=== PATIENT | female | born 2000 | race Caucasian/White ===

== ENCOUNTER 2022-01-05 16:52 | Emergency (ER) | payer MEDICAID ==
[2022-01-05] MEDS ORDERED: Sodium Chloride 0.9% 2.5 ML Syringe FLUSH PRN (17:34)
[2022-01-05] MEDS ORDERED: Sodium Chloride 0.9% 10 ML Syringe FLUSH PRN (17:34)
[2022-01-05 19:02] LABS: CARBON DIOXIDE,CO2 25.8 mmol/L (21.0-32.0); POTASSIUM,K 3.6 mmol/L (3.5-5.1)
[2022-01-05] MEDS ORDERED: Aspirin 81 MG Tab.Chew PO ONE (19:43)
[2022-01-05] MEDS ORDERED: Clopidogrel 75 MG Tab PO ONE (19:44)
[2022-01-05] MEDS ORDERED: Heparin Sodium/0.45% NaCl 500 ML IV STA (19:48)
[2022-01-05] MEDS: Heparin Sodium 5,000 Units/ML Vial IVPUSH ONE ×2 (20:12→22:32)
[2022-01-05] MEDS ORDERED: Iopamidol 755 MG/ML 500 ML Multipack Bottle IVPUSH STA (21:57)
== END 2022-01-05 22:30 ==
LOC: MW.ED 16:52
DX: O99.891 Other specified diseases and conditions complicating pregnancy (principal); R00.2 Palpitations; R79.89 Other specified abnormal findings of blood chemistry; Z3A.00 Weeks of gestation of pregnancy not specified; Z88.0 Allergy status to penicillin; Z20.822 Contact with and (suspected) exposure to COVID-19
CPT/HCPCS: 36415; 71045; 71275; 80053; 80305; 84443; 84484; 84702; 84703; 85025; 85379; 85652; 85730; 86140; 87635; 99285; A9270; J3490; Q9967; J1644; U0002

== ENCOUNTER 2022-08-25 15:44 | Inpatient (IN) | payer MEDICAID ==
[2022-08-25] MEDS ORDERED: Lidocaine 1% 50 ML MDV INJECT PRN (15:48)
[2022-08-25] MEDS ORDERED: Terbutaline 1 MG/ML SDV SUBCUT PRN (15:48)
[2022-08-25] MEDS ORDERED: Water For Irrigation,Sterile 1,000 ML Container IRR PRN (15:48)
[2022-08-25] MEDS ORDERED: Methylergonovine 0.2 MG/1 ML Amp IM PRN (15:48)
[2022-08-25] MEDS ORDERED: Sodium Chloride 0.9% 2.5 ML Syringe FLUSH PRN (15:48)
[2022-08-25] MEDS ORDERED: Sodium Chloride 0.9% 10 ML Syringe FLUSH PRN (15:48)
[2022-08-25] MEDS ORDERED: Sodium Chloride 0.9% 20 ML SDV IV PRN (15:48)
[2022-08-25] MEDS ORDERED: Tranexamic Acid 1,000 MG in Sodium Chloride 0.9% 100 ML IV PRN (15:48)
[2022-08-25] MEDS ORDERED: Misoprostol 200 MCG Tab PO PRN (15:48)
[2022-08-25] MEDS ORDERED: Carboprost Tromethamine 250 MCG/1 mL Vial IM PRN (15:48)
[2022-08-25] MEDS ORDERED: Nalbuphine HCl 10 MG/ 1ML Amp IVPUSH PRN (15:48)
[2022-08-25] MEDS ORDERED: Oxytocin/0.9 % Sodium Chloride 30 UNIT/500 ML BAG IV SCH ×2 (16:00)
[2022-08-25 16:21] LABS: HEMATOCRIT 32.3 % (36.0-46.0); HEMOGLOBIN 10.7 g/dL (12.0-16.0); MEAN CORPUSCULAR HGB CONC 33.1 g/dL (31.0-37.0); MEAN CORPUSCULAR VOLUME 90.5 fL (80.0-98.0); MEAN PLATELET VOLUME 10.4 fL (7.40-12.00); RED BLOOD CELL COUNT 3.57 M/uL (4.30-5.90); WHITE BLOOD CELL COUNT,WBC 7.48 K/uL (4.0-11.0)
[2022-08-25] MEDS: Misoprostol 25 MCG (1/4 of 100 MCG) Tab VAG PRN ×2 (16:28→20:39)
[2022-08-25 16:54] LABS: A/G RATIO 0.5 (0.9-1.6); ALBUMIN 2.1 g/dL (3.4-5.0); BILIRUBIN TOTAL 0.1 mg/dL (0.2-1.0); CALCIUM 8.3 mg/dL (8.5-10.1); CARBON DIOXIDE,CO2 20.4 mmol/L (21.0-32.0); CREATININE 0.7 mg/dL (0.6-1.0); EST CRCL DRUG DOSING (CG) 96.74 mL/min; POTASSIUM,K 3.2 mmol/L (3.5-5.1); PROTEIN TOTAL,TP 6.1 g/dL (6.4-8.2)
[2022-08-26] MEDS: Lactated Ringers 1,000 ML IV SCH ×3 (07:45→14:03)
[2022-08-26] MEDS ORDERED: Phenylephrine HCl 0.5 MG/5 ML AMP IVPUSH PRN (10:05)
[2022-08-26] MEDS ORDERED: ePHEDrine 50 MG/ML SDV IVPUSH PRN ×2 (10:05)
[2022-08-26] MEDS ORDERED: Ropivacaine HCl/PF 400 MG in Premix Bag 1 BAG EPIDUR SCH (10:15)
[2022-08-26] MEDS ORDERED: Dexmedetomidine 200 MCG/2 ML SDV ONE (10:15)
[2022-08-26] MEDS ORDERED: Bisacodyl 10 MG Supp RECTAL PRN (17:59)
[2022-08-26] MEDS ORDERED: Lanolin 100% Cream 7 GM Tube TOP PRN (17:59)
[2022-08-26] MEDS ORDERED: oxyCODONE 5 MG Tab PO PRN (17:59)
[2022-08-26] MEDS ORDERED: Witch Hazel Medicated Pads 40/Jar TOP PRN (17:59)
[2022-08-26] MEDS ORDERED: Acetaminophen 500 MG Tab PO PRN (17:59)
[2022-08-26] MEDS ORDERED: Ibuprofen 400 MG Tab PO PRN (17:59)
[2022-08-26 18:06] LABS: PH,UMBILICAL ARTERIAL 7.223 (7.18-7.38); PH,UMBILICAL VENOUS 7.342 (7.25-7.45)
[2022-08-26] MEDS: Acetaminophen 500 MG Tab PO PRN (19:47)
[2022-08-26] MEDS: Benzocaine/Menthol 20%-0.5% Spray 78 GM Cannister TOP PRN (19:47)
[2022-08-26] MEDS: Ibuprofen 800 MG Tab PO PRN (19:48)
[2022-08-27] MEDS: Acetaminophen 500 MG Tab PO PRN (01:47)
[2022-08-27 05:52] LABS: HEMATOCRIT 27.5 % (36.0-46.0); MEAN CORPUSCULAR HEMOGLOBIN 29.8 pg (27.0-32.0); MEAN CORPUSCULAR HGB CONC 32.7 g/dL (31.0-37.0); MEAN CORPUSCULAR VOLUME 91.1 fL (80.0-98.0); MEAN PLATELET VOLUME 10.3 fL (7.40-12.00); RED BLOOD CELL COUNT 3.02 M/uL (4.30-5.90); WHITE BLOOD CELL COUNT,WBC 11.56 K/uL (4.0-11.0)
[2022-08-27 06:22] LABS: A/G RATIO 0.5 (0.9-1.6); ALBUMIN 1.7 g/dL (3.4-5.0); BILIRUBIN TOTAL 0.2 mg/dL (0.2-1.0); CARBON DIOXIDE,CO2 23.9 mmol/L (21.0-32.0); CREATININE 0.9 mg/dL (0.6-1.0); EST CRCL DRUG DOSING (CG) 75.24 mL/min; POTASSIUM,K 3.4 mmol/L (3.5-5.1); PROTEIN TOTAL,TP 5.1 g/dL (6.4-8.2)
[2022-08-27] MEDS: Docusate Sodium 100 MG Cap PO PRN ×2 (08:36→21:14)
[2022-08-27] MEDS: Ibuprofen 800 MG Tab PO PRN ×2 (12:01→23:54)
[2022-08-27] MEDS: NIFEdipine 30 MG Tab.ER PO SCH (12:34)
[2022-08-28] MEDS: Acetaminophen 500 MG Tab PO PRN (06:42)
[2022-08-28] MEDS: Docusate Sodium 100 MG Cap PO PRN (09:17)
[2022-08-28] MEDS: NIFEdipine 30 MG Tab.ER PO SCH (09:17)
[2022-08-28] MEDS: Benzocaine/Menthol 20%-0.5% Spray 78 GM Cannister TOP PRN (09:21)
== END 2022-08-28 11:20 | disposition home or self-care (01) | DRG 807 ==
LOC: MW.OB 15:44 → OBSVTOIN 08-26 17:18 → MW.OB 08-26 20:25
PROVIDERS: ADMIT Obstetrics & Gynecology; ATTEND Obstetrics & Gynecology
PROC: 10E0XZZ Delivery of Products of Conception, External Approach (ICD-10-PCS; principal; 2022-08-26)
PROC: 10907ZC Drainage of Amniotic Fluid, Therapeutic from Products of Conception, Via Natural or Artificial Opening (ICD-10-PCS; 2022-08-26)
PROC: 3E033VJ Introduction of Other Hormone into Peripheral Vein, Percutaneous Approach (ICD-10-PCS; 2022-08-26)
PROC: 3E0R3BZ Introduction of Anesthetic Agent into Spinal Canal, Percutaneous Approach (ICD-10-PCS; 2022-08-26)
PROC: 00HU33Z Insertion of Infusion Device into Spinal Canal, Percutaneous Approach (ICD-10-PCS; 2022-08-26)
PROC: 0HQ9XZZ Repair Perineum Skin, External Approach (ICD-10-PCS; 2022-08-26)
DX: O14.04 Mild to moderate pre-eclampsia, complicating childbirth (principal); Z37.0 Single live birth; O70.0 First degree perineal laceration during delivery; O99.02 Anemia complicating childbirth; D64.9 Anemia, unspecified; Z3A.37 37 weeks gestation of pregnancy
CPT/HCPCS: 36415; 51702; 59025; 59409; 80053; 82803; 84550; 85027; 86592; 86850; 86900; 86901; A9270-GY; J2590; J3490; J7120